=== PATIENT | male | born 1940 ===

== ENCOUNTER 2016-06-06 16:41 | Emergency (ER) | payer MEDICARE, OTHER ==
[2016-06-06 16:53] VITALS: BP 153/91
--- NOTE | 2016-06-06 17:24 | UC ---
Laceration HPI - HPI Summary HPI Summary: 75 yo male lacerated his right 5th finger on a metal shelf today he is right handed Td up to date - History Of Current Complaint Chief Complaint: UCLaceration Stated Complaint: FINGER LAC Time Seen by Provider: 06/06/16 17:18 Hx Obtained From: Patient Laceration Location: Finger Mechanism Of Injury: Blunt Trauma Onset/Duration: Sudden Onset Severity: Mild Pain Intensity: 3 Pain Scale Used: 0-10 Numeric Aggravating Factors: Movement Related History: Dominant Hand Right - Allergies/Home Medications Allergies/Adverse Reactions: Allergies Allergy/AdvReac Type Severity Reaction Status Date / Time No Known Allergies Allergy Verified 06/06/16 16:53 Home Medications: Home Medications Aspirin Low Dose CHEW TAB* [Aspirin Low Dose TAB*] 81 mg PO DAILY 06/06/16 [ History Confirmed 06/06/16] Carvedilol TAB* [Coreg TAB*] 06/06/16 [History] Lisinopril TAB* [Prinivil TAB 5 MG*] 06/06/16 [History] Supplements* 06/06/16 [History Confirmed 06/06/16] PMH/Surg Hx/FS Hx/Imm Hx Previously Healthy: Yes Cardiovascular History Of: Reports: Hypertension - Surgical History Surgical History: Yes Surgery Procedure, Year, and Place: HERNIA REPAIR, APPENDECTOMY - Family History Known Family History: Positive: Hypertension - Social History Alcohol Use: Occasionally Substance Use Type: None Smoking Status (MU): Former Smoker - Immunization History Most Recent Tetanus Shot: 2014 Review of Systems Constitutional: Negative Skin: Negative Eyes: Negative ENT: Negative Respiratory: Negative Cardiovascular: Negative Gastrointestinal: Negative Genitourinary: Negative Motor: Negative Neurovascular: Negative Musculoskeletal: Negative Neurological: Negative Psychological: Negative All Other Systems Reviewed And Are Negative: Yes Physical Exam Triage Information Reviewed: Yes Appearance: Well-Appearing, No Pain Distress, Well-Nourished Vital Signs: Initial Vital Signs Temp 97.4 F 06/06/16 16:49 Pulse 59 06/06/16 16:49 Resp 16 06/06/16 16:49 BP 153/91 06/06/16 16:49 Eyes: Positive: Conjunctiva Clear ENT: Positive: Hearing grossly normal. Negative: Nasal congestion, Nasal drainage, Trismus, Muffled/hoarse voice Dental: Negative: Cervical Lymphadenopathy Neck: Positive: Supple, Nontender, No Lymphadenopathy Respiratory: Positive: Lungs clear, Normal breath sounds, No respiratory distress, No accessory muscle use Cardiovascular: Positive: RRR, No Murmur Neurological Exam: Normal Neurological: Positive: Alert Psychological Exam: Normal Skin Exam: Other - see image Laceration Repair - Laceration Repair 1 Description: Linear Laceration Size After Repair: Length (cm) - 1.8, Width (mm) - 2, Depth (mm) - 2 Debridement: minimal Type Injection: Digital Anesthesia Used: 2.0% Lido, 0.25% Marcaine Additive Used (in ml): Bicarb Cleansing Completed Via Routine Prep: Yes Irrigation With Pressure Irrigation Device: Yes Closure Material: Sutures Closure Method: Single Layer Suture Of: Skin Suture Type: Nylon - 4 5-0 Laceration Course/Dx - Differential Dx - Laceration/Wound Provider Diagnoses: laceration repair right little finger Discharge - Discharge Plan Condition: Stable Disposition: HOME Patient Education Materials: Care For Your Stitches (ED), Finger Laceration (ED ) Referrals: Vladimir Kumar MD [Primary Care Provider] - If Needed Additional Instructions: gently clean twice daily with soap and water dry apply thin film of antibiotic ointment ( i like aquaphor healing ointment or polytrim) bandaid recheck for concerns of infection suture out in 7-10 days you may return here if unable to get in to see your MD Images Hands: 1 - lac
[2016-06-06] MEDS ORDERED: Bupivacaine 0.25% SDV* 30 ML ONE (17:25)
[2016-06-06] MEDS ORDERED: Sodium Bicarbonate 8.4% IV* 50 ML VIAL ONE (17:25)
[2016-06-06] MEDS ORDERED: Lidocaine 2% PF * 5 ML VIAL ONE (17:25)
== END 2016-06-06 18:12 | disposition home or self-care (01) ==
LOC: UCEAST 16:41
DX: S61.216A Laceration without foreign body of right little finger without damage to nail, initial encounter (principal); W45.8XXA Other foreign body or object entering through skin, initial encounter; Y93.9 Activity, unspecified; Y92.9 Unspecified place or not applicable; I10 Essential (primary) hypertension; Z79.82 Long term (current) use of aspirin; Z87.891 Personal history of nicotine dependence
CPT/HCPCS: 12001; 99212; G0463